=== PATIENT | female | born 1960 | race Asian ===

== ENCOUNTER 2020-12-20 12:37 | Outpatient (CLI) | payer OTHER ==
--- NOTE | 2020-12-27 15:21 | Mammography Report ---
BILATERAL DIGITAL SCREENING MAMMOGRAM 3D/2D: 12/20/2020 CLINICAL: Routine screening. No prior exams were available for comparison. The tissue of both breasts is heterogeneously dense. T his may lower the sensitivity of mammography. No significant masses, calcifications, or other findings are seen in either breast. IMPRESSION: NEGATIVE There is no mammographic evidence of malignancy. A 1 year screening mammogram is recommended. This exam was interpreted at Station ID: [id number]. NOTE: For mammograms, a report in lay terms will be sent to the patient. Approximately 15% of breast malignancies will not be visualized mammographically. In the management of a palpable breast mass, a negative mammogram must not discourage biopsy of a clinically suspicious lesion. Electronically Signed By: Marisa mcbride/srinivasa:12/26/2020 15:39:02 ACR BI-RADS Category 1: Negative 3341F PARENCHYMAL PATTERN: (D) - The breast(s) demonstrate(s) heterogeneously dense fibroglandular parfabian guerrero. BI-RADS CATEGORY: (1) - 1 RECOMMENDATION: (ANNUAL) - Recommend routine annual screening mammography. 20211221 1 year screening LATERALITY: (B)
== END 2020-12-20 12:38 | disposition home or self-care (01) ==
LOC: DI.N 12:37
DX: Z12.31 Encounter for screening mammogram for malignant neoplasm of breast (principal)

== ENCOUNTER 2023-11-01 07:59 | Emergency (ER) | payer MEDICARE, OTHER ==
--- NOTE | 2023-11-01 08:19 | ED Physician Documentation ---
PD HPI URI - Stated complaint Stated Complaint: SORE THROAT,CANT SWALLOW - Chief complaint Chief Complaint: Heent - History obtained from History obtained from: Patient - History of Present Illness Timing - onset: How many days ago (Onset 3 days ago of sore throat particularly of the left side with progressive worsening. Unable to swallow due to pain. Has felt fever and chills. Did not take temperature. No congestion cough or runny nose.) Timing duration: Days (3) Timing details: Gradual onset, Still present (worsening daily, unable to swallow since yesterday due to pain.) Associated symptoms: Fever (subjective), Chills, Sore throat, Swollen nodes. No: Nasal congestion, Dry cough, Dyspnea, NVD Contributing factors: No: Sick contact Similar symptoms before: Has not had sx before Review of Systems Constitutional: reports: Fever, Chills, Myalgias Nose: denies: Rhinorrhea / runny nose, Congestion Throat: reports: Sore throat, Swollen tonsils (left side mainly) Respiratory: denies: Cough GI: denies: Nausea, Vomiting, Diarrhea Skin: denies: Rash PD PAST MEDICAL HISTORY - Past Medical History Past Medical History: Yes Cardiovascular: Hypertension, High cholesterol Respiratory: COPD - Present Medications Home Medications: Ambulatory Orders Medication Instructions Recorded Confirmed HYDROcod/ACETAM 5/325 [[place] 5/325] 1 ea PO Q6H PRN #12 tablet 11/01/23 cephALEXin [Keflex] 500 mg PO QID #28 cap 11/01/23 dexAMETHasone [Decadron] 4 mg PO DAILY #5 tablet 11/01/23 - Allergies Allergies/Adverse Reactions: Allergies Allergy/AdvReac Type Severity Reaction Status Date / Time alcohol Allergy Unknown Verified 11/01/23 08:27 - Social History Does the pt smoke?: No Smoking Status: Unknown if ever smoked PD ED PE NORMAL - Vitals Vital signs reviewed: Yes - General General: Alert and oriented X 3, Well developed/nourished, Other (She appears uncomfortable with reluctance to talk due to pain. Unlabored breathing. She is not spitting up saliva.) - Neck Neck: Supple, no meningeal sign, Other (Anterior adenopathy, particularly on the left. No submandibular fullness. Tender in the area. The throat shows redness with swelling but no bulging mainly on the left peritonsillar area. No swelling of the uvula and no soft palate or uvular deviation.) - Cardiac Cardiac: RRR, No murmur - Respiratory Respiratory: Clear bilaterally - Derm Derm: Normal color, Warm and dry, No rash Results - Vitals Vitals: Vital Signs - 24 hr 11/01/23 11/01/23 11/01/23 08:10 09:01 09:22 Temperature 36.1 C L 36.7 C Heart Rate 107 H 76 78 Respiratory 16 14 18 Rate Blood Pressure 135/94 H 129/82 H 129/82 H O2 Saturation 96 97 98 11/01/23 11/01/23 11/01/23 10:30 11:00 11:41 Temperature 36.5 C Heart Rate 73 71 70 Respiratory 18 18 18 Rate Blood Pressure 126/83 H 117/76 117/80 O2 Saturation 97 96 95 11/01/23 12:30 Temperature Heart Rate 67 Respiratory 18 Rate Blood Pressure 116/78 O2 Saturation 95 Oxygen O2 Source Room air - Labs Labs: Laboratory Tests 11/01/23 11/01/23 11/01/23 08:19 08:35 08:35 WBC 14.5 H RBC 5.10 Hgb 14.8 Hct 45.1 MCV 88.4 MCH 29.0 MCHC 32.8 RDW 13.4 Plt Count 291 MPV 8.0 Neut # (Auto) 11.9 H Lymph # (Auto) 1.5 Hickman # (Auto) 1.0 Eos # (Auto) 0.0 Baso # (Auto) 0.0 Absolute Nucleated RBC 0.00 Nucleated RBC % 0.0 Sodium 132 L Potassium 3.6 Chloride 96 L Carbon Dioxide 27 Anion Gap 9.0 BUN 23 H Creatinine 0.7 Estimated GFR (MDRD) 84 L Glucose 120 H Calcium 9.4 Total Bilirubin 2.3 H AST 15 ALT 21 Alkaline Phosphatase 49 Total Protein 8.0 Albumin 4.3 Globulin 3.7 Albumin/Globulin Ratio 1.2 Lipase 14 Group A Strep Rapid Negative PD Medical Decision Making - ED course Complexity details: reviewed results, re-evaluated patient, considered differential (Symptoms and exam are consistent with peritonsillar cellulitis. No obvious abscess visually. No submandibular fullness. I would treat empiri raudel with antibiotics and steroids and pain medicine. Can check CBC and electrolytes due to poor intake for 2 days. Give IV fluids. ), d/w patient Departure - Departure Disposition: Home, Self Care Clinical Impression: Peritonsillar cellulitis Condition: Stable Record reviewed to determine appropriate education?: Yes Instructions: ED Peritonsillar Infec Abx No I andD Follow-Up: Long Pagan MD [Primary Care Provider] - Prescriptions: dexAMETHasone [Decadron] 4 mg PO DAILY #5 tablet cephALEXin [Keflex] 500 mg PO QID #28 cap HYDROcod/ACETAM 5/325 [[place] 5/325] 1 ea PO Q6H PRN #12 tablet PRN Reason: Pain Comments: You do have an infection in the area around your tonsil with swelling and redness and obviously a lot of pain. It seems to be improving already after a couple of hours with medications. I would expect a continued trend of improvement through the afternoon though will probably be 2 or 3 days before it is pain less. Cephalexin antibiotic 4 times a day as directed. Decadron steroid for inflammation daily for 5 more days. Tylenol every 4-6 hours if needed for pain or hydrocodone/acetaminophen if needed for worse pain. I sent your prescriptions to your preferred pharmacy, [facility] in [place]. Recheck if not improving continually over the next few days and resolved fully by 3 to 5 days. Return if worsening. I am prescribing a short course of narcotic pain medication for you. These are potentially dangerous and addictive medications that should be used carefully. These medications may constipate you. Take an [id number] stool softener such as docusate twice daily with plenty of water while taking these medications. If you go 24 hours without a bowel movement, take [id number] MiraLAX, per package instructions. Do not drink or drive while taking these medications. If you received narcotic or sedating medications while in the emergency department do not drive for 24 hours. Store this medication in a safe, secure place and out of reach of children. It is a violation of federal law to give or sell this medication to another person or to use in a manner other than prescribed. The ED will not refill narcotic prescriptions, including prescriptions lost or stolen. You can dispose of unwanted medications at the [facility]'s office or at several pharmacies such as [facility]. Forms: PCP List Discharge Date/Time: 11/01/23 12:37
[2023-11-01 08:39] LABS: BASOPHILS % (AUTO) 0.3 %; EOSINOPHILS % (AUTO) 0.2 %; HCT - HEMATOCRIT 45.1 % (37.0-47.0); HGB - HEMOGLOBIN 14.8 g/dL (12.0-16.0); LYMPHOCYTES # (AUTO) 1.5 10^3/uL (1.5-3.5); LYMPHOCYTES % (AUTO) 10.2 %; MEAN CORPUSCULAR HGB CONC 32.8 g/dL (32.0-36.0); MEAN CORPUSCULAR VOLUME 88.4 fL (81.0-99.0); NEUTROPHILS # (AUTO) 11.9 10^3/uL (1.5-6.6); PLT - PLATELET COUNT 291 10^3/uL (130-450); RED CELL DISTRIBUTION WIDTH 13.4 % (12.0-15.0); WHITE BLOOD COUNT 14.5 x10^3/uL (4.8-10.8)
[2023-11-01] MEDS: cefTRIAXone 1 GM VIAL IVP STA (08:42)
[2023-11-01] MEDS: KETOROLAC 15 MG/ML VIAL IVP STA (08:44)
[2023-11-01] MEDS: DEXAMETHASONE 10 MG/ML VIAL IVP STA (08:44)
[2023-11-01] MEDS: HYDROmorphone 1 MG/ML CARPUJECT IVP STA (08:44)
[2023-11-01] MEDS: SODIUM CHLORIDE 0.9% 1,000 ML IV STA (08:44)
[2023-11-01 08:45] LABS: RAPID STREP SCREEN Negative (Negative)
[2023-11-01 08:57] LABS: ALBUMIN 4.3 g/dL (3.2-5.5); ALBUMIN/GLOBULIN RATIO 1.2 (1.0-2.2); BILIRUBIN,TOTAL 2.3 mg/dL (0.2-1.0); CALCIUM 9.4 mg/dL (8.5-10.3); CREATININE 0.7 mg/dL (0.6-1.3); POTASSIUM 3.6 mmol/L (3.5-4.5)
[2023-11-01] MEDS: HYDROmorphone 0.5 MG/0.5 ML SYRINGE IVP STA (11:19)
[2023-11-01 11:43] VITALS: O2SAT 95
[2023-11-01 12:37] VITALS: BP 116/78
== END 2023-11-01 12:37 | disposition home or self-care (01) ==
LOC: ED 07:59
DX: J36 Peritonsillar abscess (principal)
CPT/HCPCS: 36415; 80053; 83690; 85025; 87070; 87077; 87430; 96361; 96374; 96375; 99283; 99284; J1170